=== PATIENT | female | born 1980 | race Hispanic/Latino ===

== ENCOUNTER → 2025-09-27 | Outpatient (CLI) | payer OTHER ==
--- NOTE | 2025-09-30 06:32 | HMCIMG ---
EXAM: Nuclear Medicine Gastric Emptying Scan. INDICATION: Abdominal pain, nausea, bloating. REFERENCE EXAMINATION: None. TECHNIQUE: 1.5 mCi of Tc99m sulfur colloid with 02 scrambled eggs. FINDINGS: Transit of radiopharmaceutical is seen from the stomach into the small bowel. 50% gastric emptying achieved in 47 minutes. IMPRESSION: Scintigraphic findings suggest normal gastric emptying. /[place]
== END | disposition home or self-care (01) ==
LOC: RAH 07:15
PROVIDERS: ATTEND Internal Medicine
DX: R11.2 Nausea with vomiting, unspecified (principal)
CPT/HCPCS: 78264; A9541